=== PATIENT | female | born 1950 | race African-American/Black ===

== ENCOUNTER 2017-07-11 09:28 | Outpatient (CLI) | payer OTHER | END 2017-07-11 09:29 | disposition home or self-care (01) | LOC: BICMAMMO 09:28 | PROVIDERS: ATTEND Family Medicine | DX: Z12.31 Encounter for screening mammogram for malignant neoplasm of breast (principal) | CPT/HCPCS: 77067 ==

== ENCOUNTER 2018-07-12 09:24 | Outpatient (CLI) | payer MEDICARE ==
--- NOTE | 2018-07-13 08:59 | MMO ---
FILMS COMPARED: The present examination has been compared to prior imaging studies performed at [facility] on 07/11/2017, and at [facility] on 05/05/2012, 06/07/2013, 06/08/2013 and 09/23/2015. MAMMOGRAM FINDINGS: There are scattered fibroglandular densities. There are no suspicious masses, calcifications or areas of architectural distortion. IMPRESSION: THERE IS NO MAMMOGRAPHIC EVIDENCE OF MALIGNANCY. A ROUTINE FOLLOW-UP MAMMOGRAM IN 1 YEAR IS RECOMMENDED. ACR BI-RADS Category 1 - Negative
== END 2018-07-12 09:25 | disposition home or self-care (01) ==
LOC: BICMAMMO 09:24
PROVIDERS: ATTEND Family Medicine
DX: Z12.31 Encounter for screening mammogram for malignant neoplasm of breast (principal)
CPT/HCPCS: 77063; 77067